=== PATIENT | male | born 1955 | race African-American/Black ===

== ENCOUNTER 2019-12-15 22:39 | Emergency (ER) | payer MEDICARE ==
[~2019-12-15] VITALS: Ht 180.3 cm; Wt 79.4 kg
[2019-12-15] MEDS ORDERED: BENZTROPINE MESY1 MG ORAL (23:04)
[2019-12-15] MEDS ORDERED: GEODON40 MG ORAL (23:04)
[2019-12-15] MEDS ORDERED: METFORMIN HCL500 M1 ORAL (23:04)
[2019-12-15] MEDS ORDERED: ASPIRIN EC81 MG ORAL (23:04)
[2019-12-15] MEDS ORDERED: ATIVAN2 MG ORAL (23:04)
[2019-12-15] MEDS ORDERED: RISPERDAL2 MG ORAL (23:04)
[2019-12-15] MEDS ORDERED: ZOCOR20 M1 ORAL (23:04)
[2019-12-15] MEDS ORDERED: DITROPAN XL5 MG ORAL (23:04)
[2019-12-15] MEDS ORDERED: KEPPRA500 M4 ORAL (23:04)
[2019-12-15] MEDS ORDERED: DEPAKOTE ER500 MG ORAL (23:04)
[2019-12-15] MEDS ORDERED: LOSARTAN POTASS50 MG ORAL (23:04)
[2019-12-15] MEDS ORDERED: Tetanus/Diptheria/Pertussis IM ONE (23:15)
[2019-12-15 23:48] VITALS: BP 104/67
--- NOTE | 2019-12-15 23:48 | NUR ---
ED Nurse Note: Patient returned from radiology without incident.
--- NOTE | 2019-12-15 23:54 | NUR ---
ED Nurse Note: Walkk-in patient with complaints of laceration to the right glabella area. and abrasion at right knee. Patient tolerated tetanus shot well. dermabond at bedside for ERMD use.
--- NOTE | 2019-12-16 00:06 | Diagnostic Imaging Report ---
EXAM: CT Head Without Intravenous Contrast CLINICAL HISTORY: FALL TECHNIQUE: Axial computed tomography images of the head/brain without intravenous contrast. CTDI is 53.4 mGy and DLP is 1339.4 mGy-cm. One or more of the following dose reduction techniques were used: automated exposure control, adjustment of the mA and/or kV according to patient size, use of iterative reconstruction technique. COMPARISON: No relevant prior studies available. FINDINGS: Brain: Parenchymal volume loss. Nonspecific white matter hypoattenuation likely secondary to chronic microvascular ischemia. Cerebrovascular ASVD. No hemorrhage. Ventricles: Unremarkable. No ventriculomegaly. Bones/joints: Unremarkable. No acute fracture. Soft tissues: Scalp hematoma near the vertex. Sinuses: Unremarkable as visualized. No acute sinusitis. Mastoid air cells: Unremarkable as visualized. No mastoid effusion. IMPRESSION: 1. No acute intracranial abnormality. 2. Advanced chronic senescent findings above. 3. Scalp hematoma near the vertex.
--- NOTE | 2019-12-16 00:30 | NUR ---
ED Nurse Note: ERMD at bedside to repair laceration with dermabond.
[2019-12-16 00:55] VITALS: BP 104/67
--- NOTE | 2019-12-16 00:55 | NUR ---
ER DISCHARGE NOTE: Patient is cleared to be discharged per ERMD,. Patient's caregiver verbalized discharge instructions. Patient departed to home via persona vehicle driven by caregiver in stable condition. bandaide provider for right knee abrasion.
--- NOTE | 2019-12-16 04:07 | Emergency Room Report ---
History of Present Illness General Chief Complaint: Multiple Trauma/Fall Source: Caregiver Present Illness HPI 64-year-old male with history of epilepsy and severe developmental delay here after a mechanical fall. The patient's caregivers at the bedside. The patient usually has difficulty walking and needs assistance 24 hours a day. The patient stood up from the toilet and fell face forward striking his right knee and his face on the ground. He never had loss of consciousness and immediately was able to stand up right away after the incident. No evidence of tonic- clonic activity. The patient suffered a very superficial laceration of his right eyebrow. No other acute abnormalities. Patient is acting his normal self according to the caregiver at the bedside. No headaches, vision changes, focal numbness or weakness, vomiting, neck pain. Allergies: Coded Allergies: No Known Allergies (Unverified , 12/15/19) COVID-19 Screening Contact w/high risk pt: No Experienced COVID-19 symptoms?: No COVID-19 Testing performed [facility] SUPER[employer]OR: No Nursing Documentation-[facility] Past Medical History: No History, Except For Hx Diabetes: Yes Review of Systems All Other Systems: negative except mentioned in HPI Physical Exam Vital Signs Date Time Temp Pulse Resp B/P (MAP) Pulse Ox O2 Delivery O2 Flow Rate FiO2 12/15/19 22:40 98.6 75 14 104/67 (79) 99 Room Air Sp02 EP Interpretation: reviewed, normal General Appearance: no apparent distress, alert, non-toxic Head: normocephalic, other - 2 cm superficial non-gaping linear laceration of the right eyebrow Eyes: bilateral eye normal inspection, bilateral eye PERRL ENT: hearing grossly normal, normal pharynx, no angioedema, normal voice Neck: full range of motion, supple/symm/no masses Respiratory: chest non-tender, lungs clear, normal breath sounds, speaking full sentences Cardiovascular #1: regular rate, rhythm, no edema Cardiovascular #2: 2+ carotid (R), 2+ carotid (L), 2+ radial (R), 2+ radial (L) , 2+ dorsalis pedis (R), 2+ dorsalis pedis (L) Gastrointestinal: normal bowel sounds, non tender, soft, non-distended, no guarding, no rebound Rectal: deferred Genitourinary: normal inspection, no CVA tenderness Musculoskeletal: back normal, normal range of motion, calf tenderness, gait/ station normal, non-tender Neurologic: alert, motor strength/tone normal, sensory intact, responsive, speech normal Psychiatric: judgement/insight normal, memory normal, mood/affect normal, no suicidal/homicidal ideation Reflexes: 3+ bicep (R), 3+ bicep (L), 3+ tricep (R), 3+ tricep (L), 3+ knee (R) , 3+ knee (L) Lymphatic: no adenopathy Procedures Laceration/Wound Repair Laceration/Wound Repair : Consent: Verbal Wound Location: face Wound's Depth, Shape: superficial Wound Explored: clean Betadine Prep?: Yes Wound Repaired With: Dermabond Patient Tolerated: Well Complications: None Medical Decision Making Diagnostic Impression: Primary Impression: Fall Additional Impressions: Facial laceration Head injury ER Course CT head: Unremarkable 64-year-old male with history of severe developmental delay with caregiver at bedside and requiring caregiver assistance 24 hours a day here after mechanical fall. Patient was hemodynamically stable and neurovascularly intact in the emergency department. According to the caregiver at the bedside the patient has been acting completely normally since the incident occurred about 2 hours prior to coming to the emergency department. Patient had a nonbleeding superficial linear laceration of his right eyebrow which was repaired using Dermabond and did not require any sutures. Patient had a CT head that was also unremarkable. Tetanus was updated. Patient will follow-up with his primary care provider. Discharged in stable condition. Last Vital Signs Date Time Temp Pulse Resp B/P (MAP) Pulse Ox O2 Delivery O2 Flow Rate FiO2 12/16/19 00:55 98.6 14 104/67 99 Room Air 12/15/19 23:48 75 Disposition: HOME, SELF-CARE Condition: Stable Referrals: [facility] Patient Instructions: Head Injury, Adult, Laceration Care, Adult Additional Instructions: Come back to the emergency department if you have any fevers, chills, bleeding, altered mental status. Serafin Neves M.D. Dec 16, 2019 04:07
== END 2019-12-16 00:55 | disposition home or self-care (01) ==
LOC: EMR 23:37
DX: S09.90XA Unspecified injury of head, initial encounter (principal); S01.111A Laceration without foreign body of right eyelid and periocular area, initial encounter; W19.XXXA Unspecified fall, initial encounter; Y92.9 Unspecified place or not applicable; E11.9 Type 2 diabetes mellitus without complications; Z23 Encounter for immunization
CPT/HCPCS: 70450; 90471; 90715; 99284